=== PATIENT | male | born 1970 | race American Indian/Alaskan Native ===

== ENCOUNTER 2018-12-05 22:41 | Emergency (ER) | payer MEDICAID, OTHER ==
[~2018-12-05] VITALS: Ht 182.9 cm; Wt 83.2 kg
--- NOTE | 2018-12-06 04:35 | NUR ---
PT OFFERED DRY SOCKS. HE REPONDS, "NO THAT WOULD BE ASKING TOO MUCH, SCREW IT"
[2018-12-06 04:39] VITALS: BP 134/90
--- NOTE | 2018-12-06 04:39 | NUR ---
PT LEFT WITHOUT D\C PAPERWORK - UNABLE TO PROVIDE OR ASK PT IF THEY WANTED A MEAL
== END 2018-12-06 04:41 | disposition home or self-care (01) ==
LOC: ER 22:42
DX: T69.9XXA Effect of reduced temperature, unspecified, initial encounter (principal); R20.2 Paresthesia of skin; F15.90 Other stimulant use, unspecified, uncomplicated; Z88.0 Allergy status to penicillin; Y92.89 Other specified places as the place of occurrence of the external cause
CPT/HCPCS: 99281